=== PATIENT | male | born 1990 | race Caucasian/White ===

== ENCOUNTER 2020-04-26 18:19 | Emergency (ER) | payer BC, OTHER ==
[~2020-04-26] VITALS: Ht 172.7 cm; Wt 97.0 kg
[2020-04-26] MEDS ORDERED: LIDOCAINE 1% PF 2 ML VIAL. INJ ONE (19:00)
[2020-04-26 19:10] VITALS: BP 113/61
[2020-04-26] MEDS ORDERED: CEPH-264 PO (20:14)
--- NOTE | 2020-04-26 20:15 | PHYS DOC ---
Past Medical History Past Medical History: No Pertinent History Past Surgical History: No Surgical History Smoking Status: Never Smoker Alcohol Use: Occasionally Drug Use: None General Adult EDM: Chief Complaint: LACERATION/AVULSION HPI: HPI: 29-year-old male presents for evaluation of a laceration to left index finger. Patient was at work cut his left index finger on a piece of metal. On exam laceration is approximately 2 cm in length flap-like over the left index finger PIP. Wound was cleaned and explored. Local anesthesia lidocaine was used. No foreign body identified. Laceration appears to be intact. Patient sensation is intact and has normal strength of the finger. Tetanus will need to be updated Review of Systems: Review of Systems: Skin; positive laceration Heart Score: Risk Factors: Risk Factors: DM, Current or recent (<one month) smoker, HTN, HLP, family history of CAD, obesity. Risk Scores: Score 0 - 3: 2.5% MACE over next 6 weeks - Discharge Home Score 4 - 6: 20.3% MACE over next 6 weeks - Admit for Clinical Observation Score 7 - 10: 72.7% MACE over next 6 weeks - Early Invasive Strategies Current Medications: Current Medications Medications (Trade) Dose Ordered Sig/Melissa Start Time Stop Time Status Last Admin Dose Admin Lidocaine HCl (Xylocaine-Mpf 1% 2ml Vial) 2 ml 1X ONCE 04/26/20 19:00 04/26/20 19:01 DC Allergies: Allergies: Allergies Coded Allergies Type Severity Reaction Last Updated Verified No Known Drug Allergies 06/28/14 No Physical Exam: PE: Constitutional: Well developed, well nourished, no acute distress, non-toxic appearance. [] Skin: 2 cm laceration over the right index finger overlying the PIP Current Patient Data: Vital Signs: Vital Signs Date Time Temp Pulse Resp B/P (MAP) Pulse Ox O2 Delivery O2 Flow Rate FiO2 04/26/20 19:10 55 18 113/61 (78) 98 Room Air EKG: EKG: [] Radiology/Procedures: Radiology/Procedures: [] Course & Med Decision Making: Course & Med Decision Making Pertinent Labs and Imaging studies reviewed. (See chart for details) [] Lidocaine 1% approximately 3 cc used for local anesthesia. Once anesthesia was achieved wound was explored to bloodless field no foreign body identified. The tendon appears to be intact. Sutures placed six-point 0 nylon 7 placed simple interrupted no complication. Tetanus was updated. Finger was dressed and placed in AlumaFoam by nursing. Ion Disclaimer: [place] Disclaimer: This electronic medical record was generated, in whole or in part, using a voice recognition dictation system. Departure Departure Impression: Primary Impression: Laceration Disposition: HOME, SELF-CARE Condition: STABLE Referrals: NO PCP (PCP) Patient Instructions: Laceration Care, Adult Scripts Cephalexin (KEFLEX) 500 Mg Capsule 500 MG PO QID for 10 Days, #40 CAP Prov: MARGO VILLALOBOS DO 04/26/20 Justicifation of Admission Dx: Justifications for Admission: Justification of Admission Dx: N/A MARGO VILLALOBOS DO Apr 26, 2020 20:15
[2020-04-26] MEDS ORDERED: DIPH,PERTUSS(ACELL),TET VAC/PF 0.5 ML SYRINGE. VAX IM ONE (20:45)
== END 2020-04-26 20:30 | disposition home or self-care (01) ==
LOC: ER 18:19
DX: S61.211A Laceration without foreign body of left index finger without damage to nail, initial encounter (principal); Y28.8XXA Contact with other sharp object, undetermined intent, initial encounter; Y93.89 Activity, other specified; Y92.89 Other specified places as the place of occurrence of the external cause; Y99.8 Other external cause status
CPT/HCPCS: 12001; 90471; 90715; 99283